=== PATIENT | female | born 1965 | race Caucasian/White ===

== ENCOUNTER → 2017-10-21 | Outpatient (CLI) | payer OTHER ==
--- NOTE | 2017-10-21 16:30 | PCVCIMAG ---
APPROVED REPORT Study performed: 10/21/2017 10:46:07 EXAM: Comprehensive 2D, Doppler, and color-flow Echocardiogram Patient Location: Echo lab Room #: 2Status: routine BSA: 2.08 HR: 74 bpm Rhythm: NSR with frequent PVCs Other Information Study Quality: Adequate Risk Factors: Cardiac Risk Factors: HTN Indications Palpitations Hypertension/HDD 2D Dimensions LVEF(%): 64.25 (>50%) IVSd: 11.34 (7-11mm)LVOT Diam: 19.92 (18-24mm) LVDd: 39.25 mm PWd: 10.87 (7-11mm)Ascending Ao: 38.39 (22-36mm) LVDs: 25.71 (25-40mm) Left Atrium: 36.14 (27-40mm) Aortic Root: 24.09 mm LV Single Plane 4CH: 55.86 % LV Single Plane 2CH: 59.41 %[place]'s LVEF: 57.63 % Biplane EF: 58.2 % Volumes Left Atrial Volume (Systole) Single Plane 4CH: 74.22 mLSingle Plane 2CH: 48.48 mL Biplane LA Volume: 61.00 mLLA ESV Index: 30.00 mL/m2 Aortic Valve AoV Peak Gabe.: 1.50 m/s AO Peak Gr.: 9.03 mmHg Mitral Valve E/A Ratio: 1.4 MV Decel. Time: 114.27 ms MV E Max Gabe.: 1.02 m/s MV A Gabe.: 0.74 m/s IVRT: 103.81 ms TDI E/Lateral E': 12.75E/Medial E': 14.57 Medial E' Gabe.: 0.07 m/s Lateral E' Gabe.: 0.08 m/s Pulmonary Valve PV Peak Gabe.: 1.12 m/sPV Peak Gr.: 5.02 mmHg Pulmonary Vein P Vein S: 0.53 m/sP Vein A: 0.31 m/s P Vein D: 0.27 m/sP Vein A Dur.: 86.5 msec P Vein S/D Ratio: 1.96 Tricuspid Valve TR Peak Gabe.: 2.39 m/s TR Peak Gr.: 22.89 mmHg TV Vmax: 0.80 m/sPA Pressure: 30.00 mmHg Left Ventricle The left ventricle is normal size. There is normal LV segmental wall motion. Borderline concentric left ventricular hypertrophy. The left ventricular systolic function is normal. The left ventricular ejection fraction is within the normal range. LVEF is 55-60%. The left ventricular diastolic function is normal. Right Ventricle The right ventricle is normal size. The right ventricular systolic function is normal. Atria The left atrium size is normal. The right atrium size is normal. Aortic Valve Aortic valve is trileaflet. Mild aortic valve sclerosis. No aortic regurgitation is present. There is no aortic valvular stenosis. Mitral Valve The mitral valve is normal in structure. There is no mitral valve regurgitation noted. No evidence of mitral valve stenosis. Tricuspid Valve The tricuspid valve is normal in structure. Mild tricuspid regurgitation with a PA pressure of 30 mmHg. Pulmonic Valve The pulmonary valve is normal in structure. There is no pulmonic valvular regurgitation. Great Vessels The aortic root is normal in size. The ascending aorta is mildly dilated. Aortic arch is normal in caliber. IVC is normal in size and collapses with >50% inspiration Pericardium There is no pericardial effusion. There is no pleural effusion. <Conclusion> The left ventricle is normal size. LVEF is 55-60%. Aortic valve is trileaflet. Mild aortic valve sclerosis. The mitral valve is normal in structure. The tricuspid valve is normal in structure. Mild tricuspid regurgitation with a PA pressure of 30 mmHg. There is no pericardial effusion.
--- NOTE | 2017-10-21 17:11 | PCVCIMAG ---
APPROVED REPORT Imaging Protocol: Rest Tc-99m/Stress Tc-99m 1 day Study performed: 10/21/2017 11:58:20 Indication: Palpitations, PVC's, Afib Patient Location: Out-Patient Stress Nurse: Nicole Moe RN, Cari Vicente RN [place] Tech:Brian BenderHERNÁN Ht: 5 ft 6 in Wt: 220 lbs BSA: 2.08 m2 HR: 86 bpm BP: 136/99 mmHg BMI: 35.5 Rhythm: SR, PVC's Medical History Medical History: Hyperlipidemia, HTN, Smoker Medications: No cardiac meds Allergies: No known drug allergies Pretest Chest Pain Characteristics: No chest pain Exercise History: Physically active Resting Data Rest SPECT myocardial perfusion imaging was performed in supine position 45 minutes following the intravenous injection of 12 mCi of Tc-99m Sestamibi. Time of rest injection: 1150 Date: 10/21/2017 Administration Route: IV Administration Site: Left AC Exercise Stress At peak stress, the patient was injected intravenously with 32.3mCi of Tc-99m Sestamibi. Time of stress injection: 32.3 Date: 10/21/2017 Administration Route: IV Administration Site: Left AC Patient continued to exercise for 8 minute(s). Gated Stress SPECT was performed 45 minutes after stress injection. The images were gated to evaluate regional wall motion and calculate left ventricular ejection fraction. Stress Test Details Stress Test: Exercise stress testing was performed using a Kg protocol. HRMax Heart Rate (APMHR): 166 bpm Resting HR: 86 bpmTarget HR (85% APMHR): 141 bpm Max HR Achieved: 153 bpm % of APMHR: 92 Recovery HR: 96 bpm HR response to stress: Normal HR response to stress BP Resting BP: 136/99 mmHg Recovery BP: 160/72 mmHg BP response to stress: Normal blood pressure response to stress. ECG Resting ECG: Sinus Rhythm Stress ECG: Sinus Tachycardia ST Change: Horizontal ST depression Maximum ST Deviation: .70 mm Arrhythmia: PVC's Recovery ECG: Sinus Rhythm Recovery ST Change: None Recovery ST Deviation: 0 mm Recovery Arrhythmia: None Clinical Reason for Termination: Dyspnea, Fatigue Stress Symptoms: Dyspnea Exercise duration: 7 min 09 sec Exercise capacity: 10.10 METs Overall Exercise Capacity for Age: Poor Scale: Active Angina Score: None Symptoms resolved during recovery. Stress ECG Conclusion 1. Subjectively negative for ischemia 2. Elective cartographic a negative for ischemia 3. Average functional capacity Pate Treadmill Score is 3.5 which is Moderate risk. Study Data Post stress, the left ventricular ejection was 69%.. SSS: 0 SRS: 0 SDS: 0 TID = 0.85. Perfusion There is a medium area of moderately reduced uptake in the mid and apical segment of the anterior wall which is seen on the stress images and improves on the resting images. This area thickens and moves normally and is most consistent with attenuation artifact but ischemia can strictly not be excluded. Wall Motion Normal left ventricular wall motion. Nuclear Conclusion ECG Findings: non-diagnostic Clinical Findings: negative for ischemia Nuclear Findings: positive for ischemia Exercise Capacity: normal Left Ventricular Function: normal 1. Low to intermediate risk study based on bryant multiple moderate region of photopenia that may show some degree of reversibility. Interpreted by: Keith Mireles MD Electronically Approved: 10/21/2017 17:10:35 <Conclusion> 1. Subjectively negative for ischemia 2. Elective cartographic a negative for ischemia 3. Average functional capacity
== END | disposition home or self-care (01) ==
LOC: PCVCIMAG 13:57
PROVIDERS: ATTEND Internal Medicine
DX: I08.2 Rheumatic disorders of both aortic and tricuspid valves (principal); R00.2 Palpitations; I10 Essential (primary) hypertension; I49.3 Ventricular premature depolarization; E78.5 Hyperlipidemia, unspecified; F17.200 Nicotine dependence, unspecified, uncomplicated
CPT/HCPCS: 78452; 93017; 93306; A9500